=== PATIENT | female | born 1975 | race American Indian/Alaskan Native ===

== ENCOUNTER 2016-07-27 09:03 | Emergency (ER) | payer SELFPAY ==
[2016-07-27 12:52] LABS: Bilirubin,Urine NEG (Negative); Blood,Urine NEG (Negative); Ketones,Urine TR mg/dL (Negative); Leukocyte Esterase,Urine NEG (Negative); Nitrite,Urine NEG (Negative); Protein,Urine <15 mg/dL mg/dL (Negative); Urobilinogen,Urine < 2.0 mg/dL (<2.0); WBC,Urine < 1.0 /HPF (0.0-6.0)
[2016-07-27 13:55] VITALS: BP 131/74
--- NOTE | 2016-07-27 22:08 | Emergency Department Report ---
Entered by JULIETA HAQUE, acting as scribe for HAYLEE PARSONS NP. ED Female HPI - General Chief complaint: Urogenital-Female Stated complaint: VAGINAL DISCOMFORT Time Seen by Provider: 07/27/16 11:18 Source: patient Mode of arrival: Ambulatory Limitations: No Limitations - History of Present Illness Initial comments: 40 year old female presents to the ED c/o vaginal itching and irritation that began 2 days ago. Patient states that she's had bacterial/yeast infections in the past with similar symptoms, which she took Flagyl to treat. She changed her detergent 3 days ago. The patient states that she had sexual intercourse 2 days ago. Denies nausea, vomiting, fever, chills, abdominal pain, chest pain, shortness of breath, vaginal bleeding, and vaginal discharge. She denies taking Flagyl and any [id number] medication to relieve current symptoms. Notes allergic to penicillin and codeine. MD Complaint: other (vaginal itching/irritation) Onset/Timin -: days(s) Location: suprapubic Radiation: non-radiating Severity: mild Severity scale (0 -10): 0 Quality: other (itching) Consistency: constant Are you Now?: No Associated Symptoms: other (vaginal itching and irritation, but denies chest pain and shortness of breath). denies: vaginal discharge, vaginal bleeding, abdominal pain, nausea/vomiting, fever/chills, dysuria - Related Data Sexually active: Yes (2 days ago) Previous Rx's Medication Instructions Recorded Last Taken Type Fluconazole [Diflucan TAB] 150 mg PO ONCE #1 tablet 07/27/16 Unknown Rx metroNIDAZOLE [Flagyl] 500 mg PO Q12HR 7 Days 07/27/16 Unknown Rx Allergies Allergy/AdvReac Type Severity Reaction Status Date / Time codeine Allergy Anaphylaxis Verified 07/27/16 09:58 Penicillins Allergy Anaphylaxis Verified 07/27/16 09:58 ED Review of Systems Comment: All other systems reviewed and negative Constitutional: denies: chills, fever Eyes: denies: eye pain, eye discharge, vision change ENT: denies: ear pain, throat pain Respiratory: denies: orthopnea, shortness of breath, SOB with exertion, SOB at rest Cardiovascular: denies: chest pain Endocrine: no symptoms reported Gastrointestinal: denies: abdominal pain, nausea, vomiting Genitourinary: denies: dysuria, discharge, other (vaginal bleeding, but reports vaginal itching and irritation) Musculoskeletal: denies: back pain, joint swelling, arthralgia Skin: denies: rash, lesions Neurological: denies: headache, weakness, paresthesias Psychiatric: denies: anxiety, depression Hematological/Lymphatic: denies: easy bleeding, easy bruising ED Past Medical Hx - Medications Home Medications: Home Medications Medication Instructions Recorded Confirmed Last Taken Type Fluconazole [Diflucan TAB] 150 mg PO ONCE #1 tablet 07/27/16 Unknown Rx metroNIDAZOLE [Flagyl] 500 mg PO Q12HR 7 Days 07/27/16 Unknown Rx ED Physical Exam - General Limitations: No Limitations General appearance: alert, in no apparent distress - Head Head exam: Present: atraumatic, normocephalic - Eye Eye exam: Present: normal appearance, EOMI - ENT ENT exam: Present: normal exam, mucous membranes moist - Neck Neck exam: Present: normal inspection, full ROM. Absent: tenderness, lymphadenopathy - Respiratory Respiratory exam: Present: normal lung sounds bilaterally. Absent: respiratory distress - Cardiovascular Cardiovascular Exam: Present: regular rate, normal rhythm - GI/Abdominal GI/Abdominal exam: Present: soft. Absent: distended, tenderness, guarding, rebound - External exam: Present: other (foul smelling odor, female highway landscape architect present during the exam). Absent: erythema, swelling, lesions, lacerations, ecchymosis , bleeding Speculum exam: Present: normal speculum exam, vaginal discharge (moderate yellowish-clear), other (female highway landscape architect present during the exam). Absent: erythema, vaginal bleeding, laceration - Expanded Exam Expanded Female exam: Present: deferred. Absent: vaginal laceration, vulvar erythema , foreign body External exam: Present: normal. Absent: , bleeding Speculum exam: Present: vaginal discharge (moderate yellowish-clear). Absent: vaginal bleeding, other (foul smelling odor) - Extremities Exam Extremities exam: Present: normal inspection, full ROM - Back Exam Back exam: Present: normal inspection, full ROM - Neurological Exam Neurological exam: Present: alert, oriented X3 - Psychiatric Psychiatric exam: Present: normal affect, normal mood - Skin Skin exam: Present: warm, dry, intact ED Course Vital Signs 07/27/16 07/27/16 09:59 13:54 Temperature 98.5 F Pulse Rate 67 61 Respiratory 16 16 Rate Blood Pressure 134/77 Blood Pressure 131/74 [Left] O2 Sat by Pulse 100 100 Oximetry ED Medical Decision Making - Medical Decision Making ED course: This 40-year-old female that presents with vaginal discomfort 2 days. 1- UA collected. Negative results. 2- patient did well with cathode washer speculum exam. Patient did well with no complications noted. Negative results. 3- gonorrhea/Chlamydia culture sent to lab and instructed the patient to come back in 5-7 days to check for results. 4- at this time I instructed patient to change her detergent. If symptoms don' t resolve in 2-3 days to take antibiotics that I prescribed. 5- at this time the patient does not seem toxic or ill.. Patient understands discharge plan instructions. At this time there is no further questions from the patient. ED Disposition Clinical Impression: Contact dermatitis, Cervicitis Disposition: DISCHARGED TO HOME OR SELFCARE Is pt being admited?: No Does the pt Need Aspirin: No Condition: Stable Instructions: Bacterial Vaginosis (ED), Cervicitis (ED) Additional Instructions: Please follow up with your straddle carrier operator in 3-5 days. If symptoms worsen please report back to emergency room. Please change her detergent. If symptoms continue N through 3 days please take medication as prescribed. Prescriptions: Fluconazole [Diflucan TAB] 150 mg PO ONCE #1 tablet metroNIDAZOLE [Flagyl] 500 mg PO Q12HR 7 Days Referrals: PRIMARY CARE, [Primary Care Provider] - 3-5 Days [facility] [Provider Group] - 3-5 Days Forms: STI Treatment and Prevention, Work/School Release Form(ED) This documentation as recorded by the SHABNAM mooney JASMINE,accurately reflects the service I personally performed and the decisions made by me,HAYLEE PARSONS, BIRGIT.
== END 2016-07-27 13:54 | disposition home or self-care (01) ==
LOC: ED 09:03
DX: L25.9 Unspecified contact dermatitis, unspecified cause (principal); N72 Inflammatory disease of cervix uteri; Z88.0 Allergy status to penicillin; Z88.5 Allergy status to narcotic agent
CPT/HCPCS: 81001; 81025; 87210; 87591; 99284

== ENCOUNTER 2020-02-29 19:54 | Emergency (ER) | payer MEDICAID ==
[2020-02-29] MEDS ORDERED: FAMOTIDINE 20 MG TAB PO ONE (22:17)
[2020-02-29] MEDS ORDERED: diphenhydrAMINE 25 MG CAP PO ONE (22:17)
[2020-02-29] MEDS ORDERED: methylPREDNISolone Sod Succinate 125 MG/2 ML INJ IM ONE (22:17)
--- NOTE | 2020-02-29 23:08 | Emergency Department Report ---
ED General Adult HPI - General Chief complaint: Skin Rash Stated complaint: RASH Source: patient Mode of arrival: Ambulatory Limitations: No Limitations - History of Present Illness Initial comments: Patient is a 44-year-old -[place] female with history of obesity who presents to the ED with complaint of acute onset persistent diffuse itchy erythematous maculopapular urticarial rashes for the last 24 hours. Patient states that she is unsure as to the etiology of the rash as nobody else at home has had similar symptoms. Patient states that she cannot remember any changes including new soaps or detergents or fabrics or even food that she may have come into contact with. Patient however admits to eating in restaurants the last 2 days but states that she has been eating regular food that she has eaten before. Patient denies chest pain, shortness of breath, nausea, vomiting, diarrhea, abdominal pain, nasal and sinus congestion, facial swelling, swollen lips or tongue, swollen throat, dysphagia or dysphonia, wheezing or cough. MD Complaint: Diffuse itchy rash; allergic reaction -: Sudden, hour(s) (24) Location: back, abdomen, upper extremity, lower extremity Radiation: other (Diffuse) Severity scale (0 -10): 5 Quality: burning, aching, other (Burning and itching) Consistency: constant Improves with: none Worsens with: none Associated Symptoms: denies other symptoms, rash (Mild erythematous maculopapular urticarial rashes). denies: confusion, chest pain, cough, diaphoresis, fever/chills, headaches, loss of appetite, malaise, nausea/vomiting, seizure Treatments Prior to Arrival: none - Related Data Previous Rx's Medication Instructions Recorded Last Taken Type Fluconazole (Nf) [Diflucan TAB] 150 mg PO ONCE #1 tablet 07/27/16 Unknown Rx metroNIDAZOLE [Flagyl] 500 mg PO Q12HR 7 Days tab 07/27/16 Unknown Rx Famotidine [Pepcid] 20 mg PO BID #30 tablet 02/29/20 Unknown Rx Prednisone [predniSONE 10 mg 10 mg PO .TAPER #21 tab.ds.pk 02/29/20 Unknown Rx (6-Day Pack, 21 Tabs)] diphenhydrAMINE [Benadryl CAP] 50 mg PO Q8HR PRN #30 capsule 02/29/20 Unknown Rx Allergies Allergy/AdvReac Type Severity Reaction Status Date / Time codeine Allergy Anaphylaxis Verified 07/27/16 09:58 Penicillins Allergy Anaphylaxis Verified 07/27/16 09:58 ED Review of Systems ROS: Stated complaint: RASH Other details as noted in HPI Constitutional: denies: chills, fever Eyes: denies: eye pain, eye discharge, vision change ENT: denies: ear pain, throat pain Respiratory: denies: cough, shortness of breath, wheezing Cardiovascular: denies: chest pain, palpitations Endocrine: no symptoms reported Gastrointestinal: denies: abdominal pain, nausea, diarrhea Genitourinary: denies: urgency, dysuria, discharge Musculoskeletal: denies: back pain, joint swelling, arthralgia Skin: rash (Mild erythematous maculopapular urticarial rashes diffusely), change in color, pruritus. denies: lesions Neurological: denies: headache, weakness, paresthesias Psychiatric: denies: anxiety, depression Hematological/Lymphatic: denies: easy bleeding, easy bruising ED Past Medical Hx - Past Medical History Previous Medical History?: Yes Additional medical history: Obesity - Surgical History Past Surgical History?: No - Social History Smoking Status: Never Smoker Substance Use Type: None - Medications Home Medications: Home Medications Medication Instructions Recorded Confirmed Last Taken Type Fluconazole (Nf) [Diflucan TAB] 150 mg PO ONCE #1 tablet 07/27/16 Unknown Rx metroNIDAZOLE [Flagyl] 500 mg PO Q12HR 7 Days tab 07/27/16 Unknown Rx Famotidine [Pepcid] 20 mg PO BID #30 tablet 02/29/20 Unknown Rx Prednisone [predniSONE 10 mg 10 mg PO .TAPER #21 tab.ds.pk 02/29/20 Unknown Rx (6-Day Pack, 21 Tabs)] diphenhydrAMINE [Benadryl CAP] 50 mg PO Q8HR PRN #30 capsule 02/29/20 Unknown Rx ED Physical Exam - General Limitations: No Limitations General appearance: alert, in no apparent distress - Head Head exam: Present: atraumatic, normocephalic, normal inspection - Eye Eye exam: Present: normal appearance, PERRL, EOMI Pupils: Present: normal accommodation - ENT ENT exam: Present: normal exam, normal orophraynx, mucous membranes moist, TM's normal bilaterally, normal external ear exam - Neck Neck exam: Present: normal inspection, full ROM - Respiratory Respiratory exam: Present: normal lung sounds bilaterally. Absent: respiratory distress, wheezes, rales, rhonchi, chest wall tenderness, accessory muscle use, decreased breath sounds, prolonged expiratory - Cardiovascular Cardiovascular Exam: Present: regular rate, normal rhythm, normal heart sounds. Absent: systolic murmur, diastolic murmur, rubs, gallop - GI/Abdominal GI/Abdominal exam: Present: soft, normal bowel sounds. Absent: tenderness, guarding, hyperactive bowel sounds, hypoactive bowel sounds - Extremities Exam Extremities exam: Present: normal inspection, full ROM, normal capillary refill - Back Exam Back exam: Present: normal inspection, full ROM. Absent: tenderness, CVA tenderness (R), CVA tenderness (L), muscle spasm, paraspinal tenderness, vertebral tenderness - Neurological Exam Neurological exam: Present: alert, oriented X3, CN II-XII intact, normal gait, reflexes normal - Psychiatric Psychiatric exam: Present: normal affect, normal mood - Skin Skin exam: Present: warm, dry, intact, rash (Diffuse mild erythematous maculopapular urticarial rashes), erythema, urticaria ED Course Vital Signs 02/29/20 21:37 Temperature 98.1 F Pulse Rate 71 Respiratory 18 Rate Blood Pressure 146/78 O2 Sat by Pulse 100 Oximetry ED Medical Decision Making - Medical Decision Making This is a 44-year-old -[place] female with history of obesity who presents to the ED with complaint of acute onset persistent diffuse itchy erythematous maculopapular urticarial rashes for the last 24 hours. Patient states that she is unsure as to the etiology of the rash as nobody else at home has had similar symptoms. Patient states that she cannot remember any changes including new soaps or detergents or fabrics or even food that she may have come into contact with. Patient however admits to eating in restaurants the last 2 days but states that she has been eating regular food that she has eaten before. In the ED, patient is alert and oriented x3 and is not in distress. Patient was treated for acute allergic reaction with steroids, Pepcid and Benadryl. On reevaluation, patient's itching resolved with medications. Patient was discharged home on more prescriptions for steroid Dosepak, Benadryl and Pepcid. Patient was advised to follow-up with her primary care physician in 5 to 7 days for reevaluation or return to the ED immediately if symptoms get worse. - Differential Diagnosis acute urticaria; allergic reaction; Itching with irritation Critical care attestation.: If time is entered above; I have spent that time in minutes in the direct care of this critically ill patient, excluding procedure time. ED Disposition Clinical Impression: Acute urticaria, Itching with irritation Acute allergic reaction Qualifiers: Encounter type: initial encounter Qualified Code(s): T78.40XA - Allergy, unspecified, initial encounter Disposition: TO HOME OR SELFCARE Is pt being admited?: No Does the pt Need Aspirin: No Condition: Stable Instructions: Allergies, Adult, [id number], Rash, Adult, [id number], Hives, [id number] Additional Instructions: Take medication with food, drink plenty of fluids and follow-up with your primary care physician in 5 to 7 days for reevaluation. Return to the ED immediately if symptoms get worse. Prescriptions: diphenhydrAMINE [Benadryl CAP] 50 mg PO Q8HR PRN #30 capsule PRN Reason: Itching Famotidine [Pepcid] 20 mg PO BID #30 tablet Prednisone [predniSONE 10 mg (6-Day Pack, 21 Tabs)] 10 mg PO .TAPER #21 tab.ds.pk Referrals: [facility] [Provider Group] - 7-10 days Time of Disposition: 23:06 Print Language: SWEDISH
[2020-02-29 23:28] VITALS: BP 140/80
== END 2020-02-29 23:19 | disposition home or self-care (01) ==
LOC: ED 19:54
DX: T78.40XA Allergy, unspecified, initial encounter (principal); Z79.899 Other long term (current) drug therapy; X58.XXXA Exposure to other specified factors, initial encounter
CPT/HCPCS: 96372; 99282; J2930